=== PATIENT | female | born 1970 | race Caucasian/White ===

== ENCOUNTER → 2020-06-27 | Outpatient (CLI) | payer BC, OTHER ==
[~2020-06-27] MED LIST: COLACE100 MG PO; FERROUS SULFAT325 M2 PO; GAS RELIEF 8080 MG PO; GLUCOPHAGE 500500 MG PO; IBUPROFEN600 MG PO; NAPROXEN 250 M250 MG PO; NORCO 7.5-3251 EACH PO
== END ==
LOC: SLEEP 15:34
DX: R06.02 Shortness of breath (principal); R53.83 Other fatigue; G47.33 Obstructive sleep apnea (adult) (pediatric); E11.9 Type 2 diabetes mellitus without complications; F32.9 Major depressive disorder, single episode, unspecified; F41.9 Anxiety disorder, unspecified; E78.00 Pure hypercholesterolemia, unspecified; R35.0 Frequency of micturition; M54.9 Dorsalgia, unspecified; L29.9 Pruritus, unspecified; R53.1 Weakness; H53.8 Other visual disturbances
CPT/HCPCS: 95810

== ENCOUNTER → 2020-10-06 | Outpatient (CLI) | payer OTHER | LOC: HEART 5 07:30 → ECHO 08:00 → HEART 5 08:00 | DX: R07.9 Chest pain, unspecified (principal); R06.02 Shortness of breath | CPT/HCPCS: ECHO; 78452; 93306; A9502; J2785 ==

== ENCOUNTER 2020-12-15 20:10 | Emergency (ER) | payer OTHER ==
[~2020-12-15 20:10] MED LIST changes: +BENZONATATE200 MG PO; +PROAIR HFA8.5 GM INH
[2020-12-15 21:47] LABS: HEMOGLOBIN 14.6 gm/dl (12.3-15.3); RED BLOOD COUNT 4.87 M/UL (4.00-5.10); WHITE BLOOD COUNT 5.3 K/UL (4.5-11.0)
[2020-12-15 22:00] LABS: BUN/CREATININE RATIO 13 (0-10)
== END 2020-12-16 00:03 | disposition home or self-care (01) ==
LOC: ER1 20:10
PROVIDERS: Physician Assistant
DX: Z23 Encounter for immunization (principal); U07.1 COVID-19; J40 Bronchitis, not specified as acute or chronic
CPT/HCPCS: 71045; 80053; 85025; 87081; 87880; 99283; M0243; U0002